=== PATIENT | female | born 1970 | race Caucasian/White ===

== ENCOUNTER 2020-03-26 08:35 | Emergency (ER) | payer OTHER, SELFPAY ==
--- NOTE | ~2020-03-26 | XR_ITS ---
EXAMINATION: XR finger 5th LT min 2V EXAM DATE: 03/26/2020 09:00 INDICATION: FALL this am;pain/swelling/discoloration prox Lt 5th finger . TECHNIQUE: Left 5th finger frontal, lateral and oblique projections obtained and reviewed. There i s no prior study for comparison. FINDINGS: Acute closed posttraumatic fracture at the proximal aspect left 5th proximal phalangeal sh aft. No definite fracture line extending into the metacarpophalangeal joint, however difficult to exc lude a nondisplaced component extending into it. There is about 4 mm of distraction and some posterio r angulation. There is overlying soft tissue swelling. IMPRESSION: 1. Left 5th proximal phalangeal shaft fracture, posterior angulation. 2. Can't exclude intra-articular component. Reviewed, dictated and finalized at location A. AND AND CONTROL
[2020-03-26 08:43] VITALS: BP 132/59; PULSE 61; RESP 16; TEMP 36.7; O2SAT 100
--- NOTE | 2020-03-26 09:03 | ED.UPPEXIN ---
HPI - Extremity Injury (Upper) General Chief Complaint: Extremity Injury, Upper Stated Complaint: INJURED FINGER Time Seen by Provider: 03/26/20 08:37 Source: patient Mode of arrival: ambulatory Limitations: no limitations History of Present Illness HPI narrative: 49-year-old female presents to [facility] with complaints of pain, swelling and deformity to her left fifth finger since 7 AM today. Patient reports that she was at work, walking when she tripped and fell causing her to land on her left fifth finger. Patient has not tried taking any ptjj-kwf-[id number] medications for her symptoms. Patient denies bruising, erythema, numbness or tingling. Patient denies prior injury to this finger MD complaint: injury to: left and finger (left 5th ) Onset (ago): hour(s) (2) Other Extremity Injury: Left: fingers (5th ) Place: work Context: fall Associated symptoms: denies other symptoms Related Data Allergies Allergy/AdvReac Type Severity Reaction Status Date / Time Sulfa (Sulfonamide Allergy Mild Rash Unverified 08/08/08 11:20 Antibiotics) CHERRIES THROAT SWELLS SHUT Allergy Unknown Uncoded 02/25/05 07:36 Review of Systems Constitutional: Constitutional: Denies chills, Denies fatigue, Denies fever(s) and Denies weakness Cardiovascular: Cardiovascular: Denies chest pain and Denies radiating jaw, neck or arm pain Respiratory: Respiratory: Denies chest congestion, Denies cough, Denies dyspnea and Denies wheezing Gastrointestinal: Gastrointestinal: Denies abdominal pain, Denies diarrhea, Denies nausea and Denies vomiting Musculoskeletal: Comments: left 5th finger pain and swelling Integumentary/Breasts: Skin/Breast: Denies rash Neurologic: Denies dizziness PMFSH Family History Family History (Updated 03/26/20 @ 09:08 by Joelle Mitchell APRN) Father Cerebrovascular accident Mother Thyroid disease Social History Social History (Updated 03/26/20 @ 09:08 by Joelle Mitchell APRN) Smoking status: Never smoker Comments At time of signature, I agree with nursing past medical, surgical, social and family history. There is no relevant family history pertinent to the presenting complaint. Exam Const: General: no acute distress and alert Nutritional Appearance: well nourished Orientation/consciousness: patient oriented x3 Neck: Neck: normal visual inspection and no lymphadenopathy Resp: Effort & Inspection: normal respiratory effort Auscultation: clear to auscultation bilaterally Cardio: Rate: regular rate Rhythm: regular rhythm Skin: General skin exam: normal color Rashes: no rashes Wounds: no wounds Neuro: General: patient oriented x3, moves all extremities and no meningeal signs Extrem: Other: Swelling and mild deformity noted to PIP joint of left 5th finger; no bruising or open wounds noted. Radial Pulses WNL Psych: Appearance: grossly normal Mental Status: mental status grossly normal Affect: normal affect Attitude: cooperative Thought content: Yes Normal thought content present Course Vital Signs Vital signs: Vital Signs Temperature 36.7 C 03/26/20 08:43 Pulse Rate 61 03/26/20 08:43 Respiratory Rate 16 03/26/20 08:43 Blood Pressure 132/59 L 03/26/20 08:43 Pulse Oximetry 100 03/26/20 08:43 Temperature 36.7 C 03/26/20 08:43 Pulse Rate 61 03/26/20 08:43 Respiratory Rate 16 03/26/20 08:43 Blood Pressure 132/59 L 03/26/20 08:43 Pulse Oximetry 100 03/26/20 08:43 MDM - Extremity Injury (Upper) MDM Narrative Medical decision making narrative: Due to symptoms and x-ray results, patient will be referred to orthopedic physician for further evaluation higher level care. Dr Andrews is production administrator orthopedic physician. Called his office and they agree to see patient. They request that patient call their office for an appointment date and time. Patient agrees to call their office upon discharge for further evaluation. Left hand/5th finger was splinted using OCL spint p
== END 2020-03-26 09:24 | disposition home or self-care (01) ==
PROVIDERS: Emergency Provider Nurse Practitioner Family; PCP Family Medicine
DX: S62.617A Displaced fracture of proximal phalanx of left little finger, initial encounter for closed fracture (principal); W01.0XXA Fall on same level from slipping, tripping and stumbling without subsequent striking against object, initial encounter
CPT/HCPCS: 29125; 73140; 99214; G0463

== ENCOUNTER 2020-03-30 00:55 | Outpatient (CLI) | payer BC, SELFPAY ==
[2020-03-30 19:14] LABS: SARS-CoV-2 RNA PCR Negative
== END 2020-03-30 00:56 | disposition home or self-care (01) ==
LOC: ANHCOVIDDT 00:57
PROVIDERS: PCP Family Medicine; Visit Provider Plastic Surgery
DX: Z01.818 Encounter for other preprocedural examination (principal); Z20.828 Contact with and (suspected) exposure to other viral communicable diseases
CPT/HCPCS: 87635; C9803; U0003

== ENCOUNTER 2020-04-03 00:28 | Day surgery (SDC) | payer BC, SELFPAY ==
[2020-03-29 12:11] VITALS: BMI 32.1
--- NOTE | 2020-04-02 12:45 | P.PNAN_ITS ---
Anes - Initial Pre Proc Eval Procedure: Operation Date: 04/03/20 13:45 Proposed Procedures p Closed Or Possible Open Reduction With Internal C-Wire Fixation Left Fifth Proximal Phalanx - Johnnie Reyes MD Date/Time: 04/02/20 12:45 Surgeon: Johnnie Reyes MD Pre Op Diagnosis: Left Fifth Proximal Phalageal Shaft Fracture with Patient Data Age: 49 Gender: F Height: 1.69 m Weight: 91.8 kg Allergies Allergy/AdvReac Type Severity Reaction Status Date / Time Sulfa (Sulfonamide Allergy Mild Rash Unverified 04/03/20 15:15 Antibiotics) CHERRIES THROAT SWELLS SHUT Allergy Unknown Anaphylaxis Uncoded 04/03/20 15:15 Home Medications Medication Instructions Recorded Confirmed Type meloxicam 7.5 mg PO BID #20 tablet 03/26/20 04/03/20 Rx tramadol 50 mg PO Q6H PRN 03/29/20 04/03/20 History Patient hx anesthesia problems: none Family hx anesthesia problems: none [facility] Past Medical History Medical History (Updated 04/02/20 @ 12:44 by Elliot Moreno MD) Asthma Eczema Obesity Family History Family History (Updated 03/26/20 @ 09:08 by Joelle Mitchell APRN) Father Cerebrovascular accident Mother Thyroid disease Social History Social History (Updated 03/26/20 @ 09:08 by Joelle Mitchell APRN) Smoking status: Never smoker Alcohol intake: current Alcohol use details: STATES MAYBE 4 DRINKS/MONTH Substance use: never Substance use type: does not use Living arrangements: with family Spiritual care concerns: No Anes - Eval Final PreProcedure Day of Procedure 04/02/20 12:45 Patient weight: obese Heart: regular rate and rhythm Lungs: clear to auscultation and normal air movement Airway: Mallampati scale class II Neurological: alert and oriented Last oral intake: >/= 8 hours ASA classification: III Emergent: no Anesthetic plan: proceed Anesthesia type and monitoring: general GIVS and LMA Informed Consent: The patient's anesthetic plan and its attendant risks and benefits were discussed with the patient/family/POA. Questions were solicited and answers provided to the satisfaction of the patient/family/POA.
--- NOTE | ~2020-04-03 | XR_ITS ---
EXAMINATION: XR finger 5th LT min 2V INDICATION: Left fifth proximal phalanx fracture reduction in the operating room TECHNIQUE: Two intraoperative fluoroscopic images are submitted for review. Total fluoroscopic time i s 20 seconds. COMPARISON: 03/26/2020 FINDINGS: The previously described fifth proximal phalanx fracture is reduced to anatomic alignment o n the two provided fluoroscopic images. Please refer to procedure note for full details. IMPRESSION: 1. Reduced fifth proximal phalanx fracture. Please refer to procedure note for full details. Reviewed, dictated and finalized at location A. [employer]
--- NOTE | 2020-04-03 07:21 | WPDHPUPDATE1 ---
History and Physical Update Update Date/Time: 04/03/20 07:21 History and Physical has been reviewed, including an updated exam of the patient. There are NO changes in the patient's condition. Risks, benefits, and alternatives have been discussed and questions answered. Patient agrees to proceed with procedure.
[2020-04-03 14:11] VITALS: BP 130/67; PULSE 68; RESP 20; TEMP 36.3; O2SAT 98
[2020-04-03] MEDS: LACTATED RINGERS 1,000 ML 30 ML IV CONT ×2 (14:49→17:04)
[2020-04-03] MEDS: LIDO 1%/EPINEPHRINE 1:100,000 20 ML VIAL 5 ML INFILTRATE (16:40)
[2020-04-03] MEDS: BACITRACIN OINTMENT 15 GM TUBE 1 APPLIC TOPICAL (16:41)
[2020-04-03 17:04] VITALS: BP 103/62; PULSE 71; RESP 14; O2SAT 96
[2020-04-03 17:30] VITALS: BP 124/62; PULSE 57; RESP 16; O2SAT 96
--- NOTE | 2020-04-03 17:32 | P.OPB_ITS ---
Procedure Note - Brief Procedure Note - Brief Date of procedure: 04/03/20 Pre-op diagnosis: Left Fifth Proximal Phalageal Shaft Fracture with Post-op diagnosis: same Procedure performed: Closed reduction and Gamal Splint displaced fracture of proximal phalanx of left 5th finger. Anesthesia: MAC Surgeon: Johnnie Reyes MD Auto Electrician: Jeff Estimated blood loss (mL): 0 Tourniquet time (min): 0 Drains: No Packing: No Complications: No immediate complications Condition: stable Disposition: same day
--- NOTE | 2020-04-03 17:36 | PM.PROC ---
Procedure Note - Detailed Date of procedure: 04/03/20 Pre-op diagnosis: Left Fifth Proximal Phalageal Shaft Fracture with Post-op diagnosis: same Procedure performed: Closed reduction & splint fixation of fracture L 5th proximal phalanx. Description of procedure: The appropriate finger was marked in the holding area with the splint still on the hand. Patient was taken to the operating room placed supine on the operating table. A time-out was held and confirmed. She was given IV sedation. The extremity was prepped and draped in usual fashion. The C-arm was brought in and we were able to reduce this fracture satisfactorily. The fracture seemed stable it did not 10 to following to apex volar angulation. We elected not to open this or to fix it internally trin[place] taping to the ring finger was done. X-rays seemed to show this was stable. She was discharged from the operating room stable condition no tourniquet was used Anesthesia: MAC Surgeon: Johnnie Reyes MD Cryptographic Machine Operator: Jeff Estimated blood loss (mL): 0 Tourniquet time (min): 0 Drains: No Packing: No Pathology: none sent Complications: No immediate complications Condition: stable Disposition: PACU
[2020-04-03 18:00] VITALS: BP 120/63; PULSE 49; RESP 16; O2SAT 96
[2020-04-03 18:30] VITALS: BP 120/65; PULSE 49; RESP 16
== END 2020-04-03 18:45 | disposition home or self-care (01) ==
PROVIDERS: PCP Family Medicine; Visit Provider Plastic Surgery
PROC: (CPT 26735; principal; 2020-04-03 14:45)
DX: S62.617A Displaced fracture of proximal phalanx of left little finger, initial encounter for closed fracture (principal); E66.9 Obesity, unspecified; Z68.31 Body mass index [BMI] 31.0-31.9, adult; W19.XXXA Unspecified fall, initial encounter
CPT/HCPCS: 26735; 73140; A9270; C1713; J2250; J2405; J2704; J3010; J7120

== ENCOUNTER → 2020-07-01 00:25 | Outpatient (CLI) | payer BC, SELFPAY ==
[2020-07-01 18:02] LABS: SARS-CoV-2 RNA PCR Negative
== END ==
PROVIDERS: PCP Family Medicine; Visit Provider Plastic Surgery
DX: Z01.812 Encounter for preprocedural laboratory examination (principal); Z20.822 Contact with and (suspected) exposure to COVID-19
CPT/HCPCS: C9803; U0003; U0005

== ENCOUNTER 2020-07-04 00:34 | Day surgery (SDC) | payer BC, SELFPAY ==
[2020-06-27 08:48] VITALS: BMI 31.1
--- NOTE | 2020-07-04 07:12 | WPDHPUPDATE1 ---
History and Physical Update Update Date/Time: 07/04/20 07:12 History and Physical has been reviewed, including an updated exam of the patient. There are NO changes in the patient's condition. Risks, benefits, and alternatives have been discussed and questions answered. Patient agrees to proceed with procedure.
[2020-07-04 07:33] VITALS: BP 119/60; PULSE 69; RESP 20; TEMP 36.3; O2SAT 98
[2020-07-04] MEDS: LACTATED RINGERS 1,000 ML 30 ML IV CONT (07:47)
--- NOTE | 2020-07-04 08:29 | WPDANESEPPF ---
Anes - Initial Pre Proc Eval Procedure: Operation Date: 07/04/20 09:30 Proposed Procedures p Extensor Tenolysis And Capsulotomy of Left Fifth Finger, Possible Flexor Tenolysis - Johnnie Reyes MD Date/Time: 07/04/20 08:29 Surgeon: Johnnie Reyes MD Pre Op Diagnosis: Scar adhesions to tendon of Left Fifth Finger Patient Data Age: 49 Gender: F Height: 5 ft 6.5 in Weight: 87.65 kg Last Vital Signs Temp 97.4 F L 07/04/20 07:33 Pulse 69 07/04/20 07:33 Resp 20 07/04/20 07:33 BP 119/60 07/04/20 07:33 Pulse Ox 98 07/04/20 07:33 Allergies Allergy/AdvReac Type Severity Reaction Status Date / Time Sulfa (Sulfonamide Allergy Mild Rash Verified 07/04/20 07:24 Antibiotics) CHERRIES THROAT SWELLS SHUT Allergy Severe Anaphylaxis Uncoded 07/04/20 07:24 Home Medications Medication Instructions Recorded Confirmed Type calcium phos,dibas-vitamin D3 1 tablet PO DAILY 06/27/20 07/04/20 History [Vitamin D (with calcium)] Patient hx anesthesia problems: none Family hx anesthesia problems: none PMFSH Past Medical History Medical History (Updated 04/02/20 @ 12:44 by Elliot Moreno MD) Asthma Eczema Obesity Family History Family History (Updated 03/26/20 @ 09:08 by Joelle Mitchell APRN) Father Cerebrovascular accident Mother Thyroid disease Social History Social History (Updated 03/26/20 @ 09:08 by Joelle Mitchell APRN) Smoking status: Never smoker Alcohol intake: current Substance use: never Substance use type: does not use Living arrangements: with family Gender identity (if verbalized by the patient): Female Spiritual care concerns: No Anes - Eval Final PreProcedure Day of Procedure 07/04/20 08:29 Patient weight: obese Heart: regular rate and rhythm Lungs: clear to auscultation Airway: Mallampati scale class II Neurological: alert and oriented Last oral intake: >/= 8 hours ASA classification: III Emergent: no Anesthetic plan: proceed Anesthesia type and monitoring: general GIVS and standard monitoring Informed Consent: The patient's anesthetic plan and its attendant risks and benefits were discussed with the patient/family/POA. Questions were solicited and answers provided to the satisfaction of the patient/family/POA.
[2020-07-04] MEDS: LIDO 1%/EPINEPHRINE 1:100,000 50 ML VIAL 10 ML INFILTRATE (09:02)
[2020-07-04] MEDS: BUPIVACAINE/EPINEPHRINE 0.5% 30 ML VIAL 10 ML INFILTRATE (09:02)
[2020-07-04] MEDS: BACITRACIN OINTMENT 15 GM TUBE 1 APPLIC TOPICAL (09:02)
[2020-07-04 10:47] VITALS: BP 114/47; PULSE 68; RESP 20; O2SAT 100
--- NOTE | 2020-07-04 11:03 | PM.OP ---
Procedure Note - Brief Procedure Note - Brief Date of procedure: 07/04/20 Pre-op diagnosis: Scar adhesions to tendon of Left Fifth Finger Post-op diagnosis: same Procedure performed: Extensor tenolysis, capsulotomies to MPJ and PIPJ left 5th finger. Anesthesia: MAC Surgeon: Johnnie Reyes MD Armature Winder Automotive: Rosalba Marks Estimated blood loss (mL): 5 Tourniquet time (min): 56 Drains: No Packing: No Pathology: none sent Complications: No immediate complications Condition: stable Disposition: same day
--- NOTE | 2020-07-04 11:13 | P.OP_ITS ---
Procedure Note - Detailed Date of procedure: 07/04/20 Pre-op diagnosis: Scar adhesions to tendon of Left Fifth Finger Post-op diagnosis: same Procedure performed: Extensor tenolysis and joint capsulotomy of the metacarpophalangeal and proximal interphalangeal joints of the left little finge r Description of procedure: Indications: This patient had a transverse midshaft fracture of the left little finger proximal phalanx is some months ago. She went on to heal the fracture very nicely, she has no displacement. She however has established almost 0 degrees range of motion at the metacarpophalangeal joint or the proximal interphalangeal joint despite therapy. We have elected to come to lyse adhesions and loosen up the joints as best we can. The patient's left little finger was marked in the holding area. She was taken to the operating room and placed supine on the operating table. A time-out was held and confirmed. She was given sedation anesthetic. The left upper extremity was prepped and draped in usual fashion. The site was locally infiltrated with 1% lidocaine with epinephrine. We re-evaluated the passive range of motion at that point noting extension well past 0 at the metacarpophalangeal joint but flexion essentially nil. At the proximal interphalangeal joint she sits with a hand flexed approximately 30? at the PIPJ. And she has virtually no active extension or flexion. Passively we were able to extend the middle phalanx to approximately 20? and flex it to approximately 40. A dorsal midline incision was made crossing the proximal interphalangeal and metacarpophalangeal joints. Skin flaps were very carefully elevated over broad area. The extensor tendon was divided in the midline and was carefully elevated exposing the joint capsule at the metacarpophalangeal joint. This was incised across the joint laterally and a T-incision was made proximal. Zvrl-pd-vetg release required lysis of the upper portion of the origin of the collateral ligaments. Following that we could easily flexor beyond 80?. The extensor tendon was then released off the dorsal proximal phalanx especially in the area where the fracture length. This allowed some movement in the proximal interphalangeal joint. The central slip was not incised nor elevated. The adhesions off the head of the proximal phalanx were lysed with a Burdett elevator. Having completed this and release of other areas of scar tissue I was able to flex the metacarpophalangeal joint easily to 80?. We could flex the proximal interphalangeal joint to 90?. The proximal interphalangeal joint extended to approximately 15? and the metacarpophalangeal joint extension remains supple as it was preop. The extensor tendon was repaired with interrupted 4-0 Prolene and the skin was closed with running 5 0 nylon. The patient was placed in a some what bulky bandage with trinidad-taping to the ring finger to allow and encouraged range of motion as soon as the patient could tolerate. 0.5% Marcaine with epinephrine was infiltrated near the base of the digit prior to the dressing application. She had been given 2 g of Ancef preop. She was given 10 g of Decadron IV. The total tourniquet time was 56 minutes. She was discharged with a prescription for oxycodone and Cephalexin. Surgeon: Johnnie Reyes MD
[2020-07-04 11:15] VITALS: BP 118/60; PULSE 61; RESP 20
[2020-07-04 11:45] VITALS: BP 102/58; PULSE 64; RESP 20
[2020-07-04 12:10] VITALS: BP 100/78; PULSE 62; RESP 20
== END 2020-07-04 12:12 | disposition home or self-care (01) ==
PROVIDERS: PCP Family Medicine; Visit Provider Plastic Surgery
PROC: (CPT 26525; principal; 2020-07-04 09:30)
DX: M67.842 Other specified disorders of synovium, left hand (principal); J45.909 Unspecified asthma, uncomplicated; Z87.81 Personal history of (healed) traumatic fracture; L30.9 Dermatitis, unspecified; E66.9 Obesity, unspecified; Z68.30 Body mass index [BMI] 30.0-30.9, adult
CPT/HCPCS: 26525; 26520; A9270; J1100; J2250; J2270; J2405; J2704; J3010; J7120

== ENCOUNTER 2022-05-02 09:55 | Emergency (ER) | payer BC, SELFPAY ==
[2022-05-02 10:34] VITALS: BP 119/77; PULSE 64; RESP 16; TEMP 37.1; O2SAT 100
--- NOTE | 2022-05-02 11:17 | ED.URI ---
HPI - URI/Sore Throat General Chief Complaint: Upper Respiratory Infection Stated Complaint: SORE THROAT/COUGH/CONGESTION Time Seen by Provider: 05/02/22 11:18 Source: patient and RN notes reviewed Mode of arrival: ambulatory Limitations: no limitations History of Present Illness HPI Narrative: 51-year-old female presents concern for left ear pain that started yesterday, sore throat, nasal congestion, rhinorrhea, cough that started on Wednesday. She reports she has taken some evhp-ftk-[id number] medications without relief. She denies fever. Reports aches. MD elicited complaint: cough, sore throat and nasal congestion Related Data Home Medications Medication Instructions Recorded Confirmed calcium phosphate,dibasic 77 1 tablet PO DAILY 06/27/20 07/04/20 mg-vitamin D3 400 unit tablet hydrochlorothiazide 12.5 mg capsule mg 05/02/22 05/02/22 sertraline 100 mg tablet mg 05/02/22 Allergies Allergy/AdvReac Type Severity Reaction Status Date / Time Sulfa (Sulfonamide Allergy Mild Rash Verified 05/02/22 11:12 Antibiotics) CHERRIES THROAT SWELLS SHUT Allergy Severe Anaphylaxis Uncoded 05/02/22 11:12 Review of Systems Review of Systems: CONSTITUTIONAL: Reports malaise. Denies chills, sweats, or fever. EYES: Denies visual changes, redness, or discharge. ENT: Reports rhinorrhea, congestion, sinus pain, otalgia and sore throat. CARDIOVASCULAR: Denies chest pain, palpitations, or edema. RESPIRATORY: Reports cough. Denies dyspnea. GASTROINTESTINAL: Denies abdominal pain, nausea, vomiting, diarrhea SKIN: Denies rash or itching. MUSCULOSKELETAL: Reports myalgia. NEUROLOGIC: Reports headache. All systems reviewed & are unremarkable except as noted in HPI and below [facility] Past Medical History Medical History (Updated 05/02/22 @ 11:22 by Matilde Farris NP) Asthma Eczema Obesity Family History Family History (Updated 03/26/20 @ 09:08 by Joelle Mitchell APRN) Father Cerebrovascular accident Mother Thyroid disease Social History Social History (Updated 03/26/20 @ 09:08 by Joelle Mitchell APRN) Smoking status: Never smoker Alcohol intake: current Alcohol use details: STATES MAYBE 4 DRINKS/MONTH Substance use: never Substance use type: does not use Gender identity (if verbalized by the patient): Female Spiritual care concerns: No Comments At time of signature, agree with nursing past medical, surgical, social and family history. There is no relevant family history pertinent to the presenting complaint Exam Narrative: GENERAL: Nontoxic-appearing and in no acute distress. HEAD: Normocephalic EYES: PERRLA, conjunctivae clear ENT: Nares clear, turbinates edematous and erythematous, green discharge. Mucous membranes moist. Right TM pearly fulton with dull light reflex, left TM erythematous and bulging; no tragal tenderness. Oropharynx erythematous without lesions. Tonsils not enlarged and without exudate, no drooling, no hoarseness, no trismus, uvula midline. NECK: Supple. No lymphadenopathy CHEST: Clear to auscultation, breath sounds equal. No wheezing, rhonchi, rales, or stridor. No respiratory distress, speaks in full sentences. HEART: Regular rate and rhythm. No murmur heard. SKIN: Warm, dry, no rash. NEURO: Alert and oriented x3. PSYCH: Normal mood and affect Course Course Emergency Course: Patient is aware of diagnosis, understands and agrees to treatment plan. Anticipatory guidance given. Patient agrees to follow-up as directed and is aware of reasons to seek care at the emergency department. Portions of this record may have been created with voice recognition software Level of Care: Express Care Visit Vital Signs Vital signs: Vital Signs Temperature 98.8 F 05/02/22 10:34 Pulse Rate 64 05/02/22 10:34 Respiratory Rate 16 05/02/22 10:34 Blood Pressure 119/77 05/02/22 10:34 Pulse Oximetry 100 05/02/22 10:34 Temperature 98.8 F 05/02/22 10:34 Pulse Rate 64 01
== END 2022-05-02 11:30 | disposition home or self-care (01) ==
PROVIDERS: Emergency Provider Nurse Practitioner; PCP Family Medicine
DX: H66.002 Acute suppurative otitis media without spontaneous rupture of ear drum, left ear (principal); J45.909 Unspecified asthma, uncomplicated; E66.9 Obesity, unspecified; Z68.34 Body mass index [BMI] 34.0-34.9, adult
CPT/HCPCS: 99213; G0463

== ENCOUNTER 2022-05-11 10:47 | Emergency (ER) | payer BC, SELFPAY ==
[2022-05-11 10:56] VITALS: BP 124/81; PULSE 73; RESP 16; TEMP 36.7; O2SAT 98
[2022-05-11 10:58] VITALS: BP 124/81; PULSE 73; RESP 16; TEMP 36.7; O2SAT 98
[2022-05-11] MEDS: methylPREDNISolone SOD SUCC 125 MG VIAL IM (11:18)
--- NOTE | 2022-05-11 11:20 | ED.GENADULT ---
HPI - General Adult General Chief complaint: Skin/Abscess/Foreign Body Stated complaint: injury Source: patient Mode of arrival: ambulatory Limitations: no limitations History of Present Illness HPI narrative: Patient presents for evaluation of pruritic rash to the extremities x4 and torso as of yesterday. No new lotions, soaps, detergents, topical products. She was placed on amoxicillin after being evaluated here on 05/02/22 and being diagnosed with otitis media. She states she had white exudate at that time. She has a chronic cough, not worse as of late. no fever, chills, nausea, vomiting, difficulty breathing/swallowing. No recent sick contacts to her knowledge. No one else in the home has similar symptoms. She has taken some benadryl. This seemed to help but also made her feel drowsy. Related Data Home Medications Medication Instructions Recorded Confirmed hydrochlorothiazide 12.5 mg capsule 12.5 mg PO DAILY 05/02/22 05/11/22 sertraline 100 mg tablet mg 05/02/22 Allergies Allergy/AdvReac Type Severity Reaction Status Date / Time Sulfa (Sulfonamide Allergy Mild Rash Verified 05/11/22 10:56 Antibiotics) CHERRIES THROAT SWELLS SHUT Allergy Severe Anaphylaxis Uncoded 05/11/22 10:56 Review of Systems Review of Systems: CONSTITUTIONAL: Denies fever, chills, or sweats. EYES: Denies visual changes, redness, or discharge. ENT: Denies rhinorrhea, congestion, sore throat, or otalgia. CARDIOVASCULAR: Denies chest pain, palpitations, or edema. RESPIRATORY: Denies cough or dyspnea. GASTROINTESTINAL: Denies abdominal pain, nausea, vomiting, or diarrhea. GENITOURINARY: Denies dysuria or hematuria. SKIN: Reports pruritic rash to torso and extremities x4 MUSCULOSKELETAL: Denies back pain, joint pain, or myalgia. NEUROLOGIC: Denies headache, numbness, dizziness, or weakness. PSYCHIATRIC: Denies anxiety or depression. [facility] Past Medical History Medical History Asthma Eczema Obesity Surgical History Surgical History No pertinent past surgical history Family History Family History Father Cerebrovascular accident Mother Thyroid disease Social History Social History Smoking status: Never smoker Alcohol intake: current Alcohol use details: STATES MAYBE 4 DRINKS/MONTH Substance use: never Substance use type: does not use Gender identity (if verbalized by the patient): Female Spiritual care concerns: No Exam Narrative: GENERAL: Well-appearing, well-nourished, and in no acute distress. HEAD: Normocephalic, atraumatic. EYES: PERRLA and EOMI. ENT: Nares clear, no rhinorrhea or epistaxis. Mucous membranes moist. Oropharynx without tonsillar hypertrophy exudate or other lesions. Bilateral TMs pearly fulton nonbulging NECK: Supple. No adenopathy or masses. No carotid bruits or JVD CHEST: Clear to auscultation. No respiratory distress. No wheezes rales or rhonchi HEART: Regular rate and rhythm. No murmur heard. Normal peripheral pulses. ABDOMEN: Soft, nontender, nondistended, normal active bowel sounds. EXTREMITIES: Normal range of motion. No edema. SKIN: There are scattered macules and patchy areas of erythema noted to torso and extremities x 4 NEURO: No focal deficits. Alert and oriented x3. PSYCH: Normal mood and affect. Course Course Emergency Course: This is a 51-year-old female who presented for evaluation of pruritic rash. This occurred after starting amoxicillin Therefore, mono was checked and was negative. Given Solu-Medrol while here. Will discharge with prednisone and Vistaril. Increase hydration. Follow up with primary provider. Go to ER for difficulty breathing or swallowing. Pt in agreement with plan of care. Level of Care: Express C
== END 2022-05-11 11:30 | disposition home or self-care (01) ==
PROVIDERS: Emergency Provider Nurse Practitioner; PCP Family Medicine
DX: L27.1 Localized skin eruption due to drugs and medicaments taken internally (principal); T36.0X5A Adverse effect of penicillins, initial encounter
CPT/HCPCS: 36416; 86308; 96372; 99213; G0463; J2930

== ENCOUNTER 2022-09-17 10:26 | Emergency (ER) | payer BC, SELFPAY ==
[2022-09-17] VITALS (9 sets, daily range): BP systolic 125–129; BP diastolic 71–81; PULSE 59–65; RESP 15–21; TEMP 36.6; O2SAT 95–98
--- NOTE | ~2022-09-17 | CT_ITS ---
Non-contrast Head CT History: Syncope Technique: Axial non-contrast imaging of the brain was performed. Dose reduction technique was used on this scan by utilizing automated exposure control and iterative reconstruction technique. The dose -length product (DLP) was 681.00 mGy-cm. Findings: There is no evidence of intracranial hemorrhage, mass lesion, or acute infarct. Brain par enchyma appears normal. The ventricles and subarachnoid spaces are normal in size. The calvarium ap pears normal. The visualized paranasal sinuses and mastoid air cells are clear. Impression: No significant abnormality seen. Reviewed, dictated and finalized at location . Impression: No significant abnormality seen.
[2022-09-17 10:38] LABS: Glucose Point of Care 96 mg/dl (65-105)
--- NOTE | 2022-09-17 10:51 | ECG_ITS ---
Measurements Intervals [place] Rate: 61 P: -1 [place]: 192 QRS: -17 QRSD: 95 T: 11 QT: 399 QTc: 404 Interpretive Statements SINUS RHYTHM DELAYED PRECORDIAL R/S TRANSITION VOLTAGE CRITERIA FOR LVH MINIMAL Q WAVES- HIGH LATERAL LEADS BORDERLINE T WAVE ABNORMALITY- INFERIOR LEADS BORDERLINE ECG NO PREVIOUS ECG AVAILABLE FOR COMPARISON Electronically Signed On 09-17-2022 10:58:18 CDT by Tate Mota D.O.
[2022-09-17] MEDS: SODIUM CHLORIDE 0.9% IV 500 ML 999 ML IV CONT (11:01)
[2022-09-17] MEDS: ALPRAZolam (*CRX) 0.5 MG TABLET PO (11:01)
[2022-09-17 11:09] LABS: Basophils Absolute Auto 0.07 K/mm3 (0.00-0.10); Basophils Percent Auto 0.8 % (0.0-1.0); Eosinophils Absolute Auto 0.11 K/mm3 (0.02-0.50); Eosinophils Percent Auto 1.3 % (1.0-6.0); Hematocrit 44.8 % (35.0-49.0); Immature Granulocyte Absolute 0.04 K/mm3 (0.00-0.00); Immature Granulocyte Percent A 0.5 % (0.0-0.0); Lymphocytes Absolute Auto 1.91 K/mm3 (1.10-4.50); Mean Corpuscular HGB Conc 33.5 g/dL (32.0-36.0); Mean Corpuscular Hemoglobin 29.2 pg (27.0-31.0); Mean Corpuscular Volume 87.3 fL (78.0-102.0); Monocytes Absolute Auto 0.55 K/mm3 (0.10-0.90); Monocytes Percent Auto 6.6 % (2.0-11.0); Neutrophils Absolute Auto 5.6 K/mm3 (1.7-7.2); Neutrophils Percent Auto 67.8 % (50.0-70.0); Platelet Count Result 325 K/mm3 (150-420); Red Blood Count 5.13 M/mm3 (4.20-5.40); Red Cell Distribution Width 12.6 % (11.6-14.4); White Blood Count 8.3 K/mm3 (4.8-10.8)
[2022-09-17 11:29] LABS: Lactic Acid Reflex 1.4 mmol/L (0.4-2.0)
[2022-09-17 11:39] LABS: Alanine Aminotransferase 31 U/L (14-59); Albumin Level 4.2 g/dL (3.4-5.0); Alkaline Phosphatase 93 U/L (46-116); Anion Gap 9 mmol/L (8-16); Aspartate Amino Transferase 19 U/L (15-37); Bilirubin,Total 0.4 mg/dL (0.00-1.00); Blood Urea Nitrogen 19 mg/dL (7-18); Calcium 9.4 mg/dL (8.5-10.1); Carbon Dioxide 27 mmol/L (21-32); Chloride 105 mmol/L (98-108); Estimated CRCL calculation 80 ml/min; Estimated Glomerular Filt Rate > 60; Glucose 102 mg/dL (70-99); Osmolality Calculated 294 mOsm/kg (285-295); Potassium 3.9 mmol/L (3.5-5.1); Sodium 141 mmol/L (136-145); Total Protein 8.4 g/dL (6.4-8.2)
[2022-09-17 11:41] LABS: Thyroid Stimulating Hormone 1.05 uIU/mL (0.36-3.74); Troponin I 4.6 ng/L (0.00-60.4)
[2022-09-17 12:16] LABS: Appearance Urine Clear (Clear); Bilirubin Urine Negative (Negative); Blood Urine Negative (Negative); Color Urine Light Yellow (Yellow); Glucose Urine UA Negative (Negative); Ketones Urine Negative (Negative); Leukocyte Esterase Ur Trace LEU/UL (Negative); Nitrate Urine Negative (Negative); Protein Urine Negative (Negative); Urobilinogen Urine 0.2 mg/dL (0.2-1.0)
[2022-09-17 12:23] LABS: Add Urine Microscopic? YES; RBC Urine 0-2 /hpf (0-2)
[2022-09-17 12:24] LABS: Bacteria Urine None seen /hpf; Squamous Epithelial Cell Urine Rare /hpf (Few)
--- NOTE | 2022-09-17 12:32 | ED.SYNCOPE ---
HPI - Syncope General Chief Complaint: Syncope Stated Complaint: sinkable episode Time Seen by Provider: 09/17/22 10:34 Source: patient Mode of arrival: ambulatory Limitations: no limitations History of Present Illness HPI narrative: this is a 51-year-old female presents while at work she had syncopal episode with that was witnessed that had no tongue biting no loss of bowel or bladder function currently afebrile there is no chest pain no shortness of breath no nausea vomiting no abdominal pain. Patient has a history of anxiety and felt anxious. There is some mild dysuria with no flank pain no hematuria no fever chills. complaint: loss of consciousness -: second(s) Related Data Allergies Allergy/AdvReac Type Severity Reaction Status Date / Time Sulfa (Sulfonamide Allergy Hives Verified 09/17/22 10:40 Antibiotics) Review of Systems Review of Systems: All systems reviewed & are unremarkable except as noted in HPI and below PMFSH Past Medical History Medical History Anxiety Exam Const: General: healthy appearing Nutritional Appearance: well nourished Orientation/consciousness: patient oriented x3 Limitations: no limitations HENMT: Head: normal to inspection Chest: Chest palpation & inspection: normal inspection of the chest Resp: Effort & Inspection: normal respiratory effort Auscultation: clear to auscultation bilaterally Cardio: Rate: regular rate Rhythm: regular rhythm GI: Auscultation: normal bowel sounds Urinary Catheter: Urinary Catheter: patent and draining Back/Spine/Pelvis: Back: no CVA tenderness Skin: General skin exam: normal color Rashes: no rashes Wounds: no wounds Neuro: General: patient oriented x3 Cranial nerves: Yes Nystagmus not present Speech: normal speech Gait exam (Neuro): Normal gait present Extrem: General: normal to inspection Psych: Mental Status: mental status grossly normal Affect: Anxious affect present Course Course Emergency Course: CT of the brain reviewed with patient which showed no acute intracranial findings, labs reviewed with patient which were within normal limits EKG as well. The patient did receive IV fluids and a dose of Xanax patient symptoms have improved. Patient had a urinalysis which showed that she has a urinary tract infection a dose of IV ceftriaxone was given. Vital Signs Vital signs: Vital Signs Temperature 36.6 C 09/17/22 10:39 Pulse Rate 60 09/17/22 10:39 Blood Pressure 126/74 09/17/22 10:39 Pulse Oximetry 98 09/17/22 10:39 Oxygen Delivery Room Air 09/17/22 10:39 Temperature 36.6 C 09/17/22 11:45 Pulse Rate 65 09/17/22 12:13 Respiratory Rate 20 09/17/22 11:46 Blood Pressure 129/81 09/17/22 11:45 Pulse Oximetry 96 09/17/22 11:46 Oxygen Delivery Room Air 09/17/22 10:45 MDM - Syncope Lab Data 09/17/22 11:04 09/17/22 11:04 Labs: Lab Results 09/17/22 09/17/22 Range/Units 10:33 11:04 WBC 8.3 (4.8-10.8) K/mm3 RBC 5.13 (4.20-5.40) M/mm3 Hgb 15.0 (12.0-15.0) g/dL Hct 44.8 (35.0-49.0) % MCV 87.3 (78.0-102.0) fL MCH 29.2 (27.0-31.0) pg MCHC 33.5 (32.0-36.0) g/dL RDW 12.6 (11.6-14.4) % Plt Count 325 (150-420) K/mm3 MPV 10.0 (9.2-11.8) fl Immature Gran % (Auto) 0.5 H (0.0-0.0) % Neut % (Auto) 67.8 (50.0-70.0) % Lymph % (Auto) 23.0 (18.0-42.0) % [place] % (Auto) 6.6 (2.0-11.0) % Eos % (Auto) 1.3 (1.0-6.0) % Baso % (Auto) 0.8 (0.0-1.0) % Lymph # (Auto) 1.91 (1.10-4.50) K/mm3 [place] # (Auto) 0.55 (0.10-0.90) K/mm3 Eos # (Auto) 0.11 (0.02-0.50) K/mm3 Baso # (Auto) 0.07 (0.00-0.10) K/mm3 Abs Immat Gran (auto) 0.04 H (0.00-0.00) K/mm3 Absolute Neuts (auto) 5.6 (1.7-7.2) K/mm3 Absolute Nucleated RBC 0.00 (0.00-0.00) K/mm3 Nucleated RBC % 0.0 (0-0.0) % Sodium 141 (136-145) mmol/L Potassium 3.9 (3.5
== END 2022-09-17 13:14 | disposition home or self-care (01) ==
PROVIDERS: Emergency Provider Emergency Medicine
DX: R55 Syncope and collapse (principal); F41.9 Anxiety disorder, unspecified; N30.00 Acute cystitis without hematuria
CPT/HCPCS: 36415; 70450; 80053; 81001; 82948; 83605; 84443; 84484; 85025; 93005; 96361; 96365; 99284; A9270; J0696; J7040

== ENCOUNTER 2022-09-28 12:46 | Emergency (ER) | payer BC, SELFPAY ==
--- NOTE | ~2022-09-28 | XR_ITS ---
EXAMINATION: XR elbow RT min 3V DATE: 09/28/2022 13:23 INDICATION: Right elbow pain. Fall. TECHNIQUE: 4 views of right elbow were obtained. COMPARISON: Right elbow radiographs 09/22/2009 FINDINGS: Bone alignment is normal. No fracture. Joint spaces are well maintained. No elbow joint eff usion. IMPRESSION: 1. No fracture. Reviewed, dictated and finalized at location A. IMPRESSION: 1. No fracture.
[2022-09-28 12:59] VITALS: BP 112/70; PULSE 64; RESP 16; TEMP 36.1; O2SAT 98
--- NOTE | 2022-09-28 13:35 | ED.UPPEXIN ---
HPI - Extremity Injury (Upper) General Chief Complaint: Extremity Injury, Upper Stated Complaint: rt elbow Time Seen by Provider: 09/28/22 13:35 Source: patient, RN notes reviewed and old records reviewed Mode of arrival: ambulatory Limitations: no limitations History of Present Illness HPI narrative: 51 year old female who presents to [facility] with complaints of falling at work today hitting her right elbow on concrete. 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 Patient reports no pain when sitting still but reports pain with movement of her right elbow. No swelling redness or bruising noted at this time no obvious deformity noted. MD complaint: injury to: right and elbow Onset (ago): hour(s) (1000 today) Place: work Severity scale (1-10): 5 (with movement) Exacerbating factors: movement of extremity Treatments prior to arrival: cold therapy Related Data Home Medications Medication Instructions Recorded Confirmed atorvastatin 10 mg tablet 10 mg PO DAILY 09/28/22 09/28/22 hydrochlorothiazide 12.5 mg capsule 12.5 mg PO DAILY 09/28/22 09/28/22 sertraline 100 mg tablet 100 mg PO DAILY 09/28/22 09/28/22 Allergies Allergy/AdvReac Type Severity Reaction Status Date / Time leach Allergy Hives Verified 09/28/22 12:57 Sulfa (Sulfonamide Allergy Hives Verified 09/28/22 12:57 Antibiotics) Review of Systems Review of Systems: CONSTITUTIONAL: Denies fever, chills, or sweats. EYES: Denies visual changes, redness, or discharge. ENT: Denies rhinorrhea, congestion, sore throat, or otalgia. CARDIOVASCULAR: Denies chest pain, palpitations, or edema. RESPIRATORY: Denies cough or dyspnea. GASTROINTESTINAL: Denies abdominal pain, nausea, vomiting, or diarrhea. GENITOURINARY: Denies dysuria or hematuria. SKIN: Denies rash or itching. MUSCULOSKELETAL: Denies back pain,positive for right elbow pain especially with movement, or myalgia. NEUROLOGIC: Denies headache, numbness, or weakness. PSYCHIATRIC: Positive for history of anxiety or depression. All systems reviewed & are unremarkable except as noted in HPI and below PMFSH Past Medical History Medical History (Updated 09/29/22 @ 10:34 by Keturah Wilkinson NP) Anxiety and depression Hyperlipidemia Hypertension Social History Social History (Updated 09/29/22 @ 10:34 by Keturah Wilkinson NP) Smoking status: Never smoker Alcohol intake: unknown Substance use: never Substance use type: does not use Living arrangements: with family Gender identity (if verbalized by the patient): Female Comments At time of signature, agree with nursing past medical, surgical, social and family history. There is no relevant family history pertinent to the presenting complaint Exam Narrative: GENERAL: Well-appearing, well-nourished, and in no acute distress. HEAD: Normocephalic, atraumatic. EYES: PERRLA and EOMI. ENT: Nares clear, no rhinorrhea or epistaxis. Mucous membranes moist.TM's normal with good light reflex, throat pink with no swelling NECK: Supple.no lymphadenopathy CHEST: Clear to auscultation. No respiratory distress.SAO2 98% on room air HEART: Regular rate and rhythm. No murmur heard. Normal peripheral pulses. ABDOMEN: Soft, nontender, nondistended, normal active bowel sounds. EXTREMITIES: Normal range of motion. No edema. Right elbow pain especially with movement no acute swelling bruising or redness noted, strong pulses right arm no tingling or numbness of right arm SKIN: Warm, dry, no rash. NEURO: No focal deficits. Alert and oriented x3. Course Course Emergency Course: Patient is aware of diagnosis, understands and agrees to treatment plan.? Anticipatory guidance given.? Patient agrees to follow-up as directed and is aware of reasons to seek care at the emergency department. Portions of this record may have been created wit
== END 2022-09-28 13:49 | disposition home or self-care (01) ==
PROVIDERS: Emergency Provider Registered Nurse; PCP Family Medicine
DX: S50.01XA Contusion of right elbow, initial encounter (principal); W19.XXXA Unspecified fall, initial encounter; Y99.0 Civilian activity done for income or pay; E78.5 Hyperlipidemia, unspecified; I10 Essential (primary) hypertension; F41.9 Anxiety disorder, unspecified; F32.A Depression, unspecified
CPT/HCPCS: 73080; 99213; G0463

== ENCOUNTER 2023-04-03 13:36 | Emergency (ER) | payer BC, SELFPAY ==
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
[2023-04-03 13:45] VITALS: BP 135/61; PULSE 66; RESP 16; TEMP 36.8; O2SAT 96
== END 2023-04-03 14:36 | disposition home or self-care (01) ==
PROVIDERS: Emergency Provider Nurse Practitioner; PCP Family Medicine
DX: S89.92XA Unspecified injury of left lower leg, initial encounter (principal); Y08.89XA Assault by other specified means, initial encounter; Y99.0 Civilian activity done for income or pay; E78.5 Hyperlipidemia, unspecified; I10 Essential (primary) hypertension; F41.9 Anxiety disorder, unspecified; F32.A Depression, unspecified
CPT/HCPCS: 73562; 99213; G0463

== ENCOUNTER 2023-09-10 15:35 | Outpatient (CLI) | payer BC, SELFPAY ==
--- NOTE | 2023-09-10 16:01 | ECG_ITS ---
SEE SCANNED COPY FOR CONFIRMED REPORT MTDD
[2023-09-10 16:25] LABS: Anion Gap 10 mmol/L (4-12); Blood Urea Nitrogen 21 mg/dL (7-17); Calcium 9.5 mg/dL (8.4-10.2); Carbon Dioxide 26 mmol/L (22-30); Chloride 107 mmol/L (98-107); Estimated Glomerular Filt Rate > 60; Glucose 137 mg/dL (65-110); Potassium 4.3 mmol/L (3.4-5.0); Sodium 143 mmol/L (137-145)
== END 2023-09-10 15:36 | disposition home or self-care (01) ==
PROVIDERS: PCP Physician Assistant; Visit Provider Nurse Anesthetist, Certified Registered
DX: Z01.818 Encounter for other preprocedural examination (principal); I10 Essential (primary) hypertension
CPT/HCPCS: 36415; 80048; 93005